=== PATIENT | female | born 1930 | race Caucasian/White ===

== ENCOUNTER 2016-06-19 09:16 | Outpatient (CLI) ==
--- NOTE | 2016-06-22 10:32 | HOLTER ---
PATIENT INFORMATION AND COMMENTS Indications: BRADYCARDIA, SYNCOPE __ Patient Medications: AMLODIPINE, VASOTEC, ESTRACE, FLONASE, SYNTHROID __ Pre-procedure Summary: Protocol: Standard Heart Rate Started: 06/19/16950 Minimum: 46/MIN Weight: 145 LBS Ended: 06/20/16907 Maximum: 107/MIN Height: 65" Duration: 24 HRS Average: 61 _ INTERPRETATIONS/OBSERVATIONS: 1. BASIC RHYTHM: SINUS, RATE 46/MINUTE TO 100/MINUTE, AVERAGE 60/MINUTE, FIRST DEGREE AV BLOCK, POSSIBLE 2ND DEGREE MOBITZ TYPE 1 ([place]), WITH PAUSES OF 1.9 SECONDS.,FEW. 2. RARE PAC'S AND PVC'S. 3. NO PAUSES OF GREATER THAN [address] NO [address]-T WAVE CHANGES FROM BASELINE 5. ACTIVITY LOG--BLANK MTDD
== END 2016-06-19 09:17 | disposition home or self-care (01) ==
LOC: CAR 09:16
PROVIDERS: ATTEND Family Medicine
DX: R00.1 Bradycardia, unspecified (principal); R55 Syncope and collapse